=== PATIENT | male | born 2000 | race Caucasian/White ===

== ENCOUNTER 2021-10-28 02:25 | Emergency (ER) | payer SELFPAY ==
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
[2021-10-28 05:45] LABS: Absolute Lymphocytes (CBC) 1.4 K/uL (0.7-4.9); Hematocrit 55.2 % (39.6-49.0); Lymphocytes % 5.7 % (15.3-44.8); MPV 9.5 fL (7.6-11.3); RBC Red Blood Cell Count 5.89 M/uL (4.33-5.43)
[2021-10-28] MEDS ORDERED: TETANUS & DIPHTHERIA TOX,ADULT 0.5 ML VIAL ONE (05:46)
[2021-10-28 05:50] LABS: Protime INR 1.03
[2021-10-28 06:00] LABS: Albumin 4.5 g/dL (3.4-5.0); Bilirubin Direct 0.1 mg/dL (0-0.2); Bilirubin Total 0.4 mg/dL (0.2-1.0); Potassium 3.9 mmol/L (3.5-5.1); Protein, Total 8.8 g/dL (6.4-8.2)
[2021-10-28] MEDS ORDERED: LIDOCAINE 2% MPF 5 ML VIAL ONE ×2 (06:49→07:01)
[2021-10-28 07:07] LABS: Blood Morphology Comment NOT SEEN (NOT SEEN); Platelet Estimate ADEQ
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
[2021-10-28] MEDS ORDERED: CEFTRIAXONE 1000 MG/VIAL ONE (08:41)
[2021-10-28] MEDS ORDERED: NA CHLORIDE 0.9% 100 ML ONE (08:41)
[2021-10-28 09:25] VITALS: TEMP 97.9
[2021-10-28 09:27] VITALS: BP 128/84; O2SAT 100
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
== END 2021-10-28 09:18 | disposition home or self-care (01) ==
LOC: ER 02:25
PROC: 0JQK0ZZ Repair Left Hand Subcutaneous Tissue and Fascia, Open Approach (ICD-10-PCS; principal; 2021-10-28)
DX: S61.412A Laceration without foreign body of left hand, initial encounter (principal); S20.229A Contusion of unspecified back wall of thorax, initial encounter; S30.1XXA Contusion of abdominal wall, initial encounter; S60.222A Contusion of left hand, initial encounter; V49.50XA Passenger injured in collision with unspecified motor vehicles in traffic accident, initial encounter; F17.220 Nicotine dependence, chewing tobacco, uncomplicated
CPT/HCPCS: 36415; 70450; 70486; 71260; 72125; 74177; 76377; 80048; 80076; 82565; 85025; 85610; 85730; 86850; 86900; 86901; 90471; 90714; 96374; 99285; Q9967